=== PATIENT | female | born 1975 | race African-American/Black ===

== ENCOUNTER 2019-02-09 06:06 | Emergency (ER) | payer OTHER ==
[~2019-02-09] VITALS: Ht 160 cm; Wt 73.9 kg
[2019-02-09] MEDS ORDERED: IV NORMAL SALINE 1000ML BAG 1,000 ML IV SCH (06:42)
--- NOTE | 2019-02-09 06:51 | PHYS DOC ---
Past Medical History Past Medical History: Asthma, Hypertension, Migraines Past Surgical History: Hysterectomy Smoking: Cigarettes (The patient is a nonsmoker.) Alcohol Use: None Drug Use: None Adult General Chief Complaint Chief Complaint: FATIGUE HPI HPI Patient is a 43-year-old female who presents to the emergency department for evaluation. She states that she began feeling lightheaded yesterday, ate tonight, developed a migraine headache on her left side. She states the headache was more intense earlier, but has let up some at this time. This headache is exactly the same as her prior migraine headaches that she has had in the past, was associated with some blurred vision transiently as her migraine headaches normally are, but that has resolved at this time. She states she just feels f atigued, which is her chief complaint. She states she has felt lightheaded for the past 24 hours. She denies any numbness, weakness, current vision changes, speech difficulty, she has had some shortness of breath earlier, which seems to have improved. She does report a history of asthma. She states she has some intermittent chest pain yesterday but has not had any chest discomfort at this time. She describes her chest pain was brief and sharp, lasting a few seconds and then disappearing. She does not have any pleuritic pain this time. She denies any exertional pain. There are no alleviating or exacerbating factors to her symptoms otherwise. Her main concern is the lightheadedness that she is experiencing. She does not report significant current shortness of breath. She is not having any chest pain currently. Review of Systems Review of Systems Constitutional: Denies fever or chills [] Eyes: Denies change in visual acuity, redness, or eye pain [] HENT: Denies nasal congestion or sore throat [] Respiratory: Denies cough or current shortness of breath [] Cardiovascular: No additional information not addressed in HPI [] GI: Denies abdominal pain, nausea, vomiting, bloody stools or diarrhea [] : Denies dysuria or hematuria [] Musculoskeletal: Denies back pain or joint pain [] Integument: Denies rash or skin lesions [] Neurologic: Denies focal weakness or sensory changes [] Endocrine: Denies polyuria or polydipsia [] All other systems were reviewed and found to be within normal limits, except as documented in this note. Current Medications Current Medications Current Medications Medications (Trade) Dose Ordered Sig/Juliane Start Time Stop Time Status Last Admin Dose Admin Acetaminophen (Tylenol) 1,000 mg 1X ONCE 02/09/19 07:30 02/09/19 07:31 DC Sodium Chloride 1,000 ml @ 1,000 mls/hr Q1H 02/09/19 06:42 02/09/19 07:41 DC 02/09/19 07:46 1,000 MLS/HR Allergies Allergies Allergies Coded Allergies Type Severity Reaction Last Updated Verified No Known Drug Allergies 02/09/19 No Physical Exam Physical Exam PHYSICAL EXAM: CONSTITUTIONAL: Well developed, well nourished HEAD: normocephalic, atraumatic EENT: PERRL, EOMI. Conjunctivae normal color, sclerae non-icteric; moist mucous membranes. NECK: Supple, non-tender; no meningismus. LUNGS: Lungs CTA, breathing even and unlabored. Normal air movement. HEART: Regular rate and rhythm, no murmur CHEST: No deformity; non-tender ABDOMEN: The abdomen is soft, and non-tender, no masses or bruits. EXTREM: Normal ROM; no deformity, no calf tenderness. Normal pulses palpable in all extremities. There is no pedal edema. SKIN: No rash; no diaphoresis NEURO: Alert; normal speech and cognition; CN's grossly intact; strength grossly intact without focal deficit. BACK: No CVA TTP. Current Patient Data Vital Signs Vital Signs Date Time Temp Pulse Resp B/P (MAP) Pulse Ox O2 Delivery O2 Flow Rate FiO2 02/09/19 06:30 97.9 106 20 129/70 (89) 98 Room Air 97.9 Lab Values Laboratory Tests Test 02/09/19 06:25 02/09/19 06:36 02/09/19 06:50 Urine Color Yellow Urine Clarity Clear Urine pH 6.5 Urine Specific [place] 1.020 Urine Protein 30 mg/dL (NEG-TRACE) Urine Glucose (UA) Negative mg/dL (NEG) Urine Ketones (Stick) Negative mg/dL (NEG) Urine Blood Negative (NEG) Urine Nitrite Negative (NEG) Urine Bilirubin Negative (NEG) Urine Urobilinogen Dipstick 1.0 mg/dL (0.2 mg/dL) Urine Leukocyte Esterase Negative (NEG) Urine RBC 0 /HPF (0-2) Urine WBC Occ /HPF (0-4) Urine Squamous Epithelial Cells Mod /LPF Urine Bacteria Few /HPF (0-FEW) Urine Hyaline Casts Moderate /HPF Urine Mucus Marked /LPF POC Urine HCG, Qualitative Hcg negative (Negative) White Blood Count 10.1 x10^3/uL (4.0-11.0) Red Blood Count 5.06 x10^6/uL (3.50-5.40) Hemoglobin 15.3 g/dL (12.0-15.5) Hematocrit 45.0 % (36.0-47.0) Mean Corpuscular Volume 89 fL (79-100) Mean Corpuscular Hemoglobin 30 pg (25-35) Mean Corpuscular Hemoglobin Concent 34 g/dL (31-37) Red Cell Distribution Width 13.4 % (11.5-14.5) Platelet Count 304 x10^3/uL (140-400) Neutrophils (%) (Auto) 78 % (31-73) H Lymphocytes (%) (Auto) 15 % (24-48) L Monocytes (%) (Auto) 6 % (0-9) Eosinophils (%) (Auto) 1 % (0-3) Basophils (%) (Auto) 0 % (0-3) Neutrophils # (Auto) 7.8 x10^3uL (1.8-7.7) H Lymphocytes # (Auto) 1.5 x10^3/uL (1.0-4.8) Monocytes # (Auto) 0.6 x10^3/uL (0.0-1.1) Eosinophils # (Auto) 0.1 x10^3/uL (0.0-0.7) Basophils # (Auto) 0.0 x10^3/uL (0.0-0.2) D-Dimer (Yoko) 0.32 ug/mlFEU (0.00-0.50) Sodium Level 138 mmol/L (136-145) Potassium Level 3.5 mmol/L (3.5-5.1) Chloride Level 103 mmol/L (98-107) Carbon Dioxide Level 25 mmol/L (21-32) Anion Gap 10 (6-14) Blood Urea Nitrogen 9 mg/dL (7-20) Creatinine 1.0 mg/dL (0.6-1.0) Estimated GFR (Cockcroft-Gault) 73.2 BUN/Creatinine Ratio 9 (6-20) Glucose Level 97 mg/dL (70-99) Calcium Level 9.5 mg/dL (8.5-10.1) Magnesium Level 2.0 mg/dL (1.8-2.4) Total Bilirubin 0.7 mg/dL (0.2-1.0) Aspartate Amino Transferase (AST) 20 U/L (15-37) Alanine Aminotransferase (ALT) 24 U/L (14-59) Alkaline Phosphatase 65 U/L (46-116) ZS-Yns-L-Type Natriuretic Peptide 109 pg/mL (0-124) Total Protein 7.6 g/dL (6.4-8.2) Albumin 3.9 g/dL (3.4-5.0) Albumin/Globulin Ratio 1.1 (1.0-1.7) Thyroid Stimulating Hormone (TSH) 1.010 uIU/mL (0.358-3.74) Free Thyroxine 0.91 ng/dL (0.76-1.46) Laboratory Tests 02/09/19 06:50 Laboratory Tests 02/09/19 06:50 EKG EKG [Normal sinus rhythm with a normal rate, normal axis, normal intervals, there are no acute ischemic ST/T changes.] Radiology/Procedures Radiology/Procedures [] Course & Med Decision Making Course & Med Decision Making Pertinent Labs and Imaging studies reviewed. (See chart for details) []9:10 AM:Patient remains stable. I discussed test results, the need for close follow-up, and return precautions. Dragon Disclaimer Dragon Disclaimer This electronic medical record was generated, in whole or in part, using a voice recognition dictation system. Departure Departure Impression: Primary Impression: Migraine headache Additional Impression: Lightheadedness Disposition: 01 HOME, SELF-CARE Condition: STABLE Referrals: BJ BERNAL MD (PCP) Patient Instructions: Dizziness, Migraine Headache Problem Qualifiers ALBERTA CORDERO MD February 09, 2019 06:51
[2019-02-09 06:57] LABS: BILIRUBIN,URINE NEGATIVE (NEG); CLARITY,URINE CLEAR; COLOR,URINE YELLOW; NITRITE,URINE NEGATIVE (NEG); PH,URINE 6.5; PROTEIN,URINE 30 mg/dL (NEG-TRACE)
[2019-02-09 07:01] LABS: BASO % 0 % (0-3); EOS # 0.1 x10^3/uL (0.0-0.7); EOS % 1 % (0-3); HEMOGLOBIN 15.3 g/dL (12.0-15.5); LYMPH # 1.5 x10^3/uL (1.0-4.8); LYMPH % 15 % (24-48); MEAN CORPUSCULAR HEMOGLOBIN 30 pg (25-35); MEAN CORPUSCULAR HGB CONC 34 g/dL (31-37); MEAN CORPUSCULAR VOLUME 89 fL (79-100); MONO # 0.6 x10^3/uL (0.0-1.1); MONO % 6 % (0-9); NEUT # 7.8 x10^3uL (1.8-7.7); NEUT % 78 % (31-73); PLATELET COUNT 304 x10^3/uL (140-400); RED BLOOD COUNT 5.06 x10^6/uL (3.50-5.40); RED CELL DISTRIBUTION WIDTH 13.4 % (11.5-14.5); WHITE BLOOD COUNT 10.1 x10^3/uL (4.0-11.0)
[2019-02-09 07:10] LABS: CALCIUM 9.5 mg/dL (8.5-10.1); GFR 73.2; POTASSIUM 3.5 mmol/L (3.5-5.1)
[2019-02-09 07:16] LABS: ALBUMIN 3.9 g/dL (3.4-5.0); ALBUMIN/GLOBULIN RATIO 1.1 (1.0-1.7); TOTAL BILIRUBIN 0.7 mg/dL (0.2-1.0); TOTAL PROTEIN 7.6 g/dL (6.4-8.2)
[2019-02-09 07:23] LABS: BACTERIA,URINE FEW /HPF (0-FEW); RBC,URINE 0 /HPF (0-2); SQUAMOUS EPITHELIAL CELL,UR MOD /LPF; WBC,URINE OCC /HPF (0-4)
[2019-02-09 07:24] LABS: HYALINE CASTS, URINE MODERATE /HPF
[2019-02-09 07:27] LABS: FREE T4 0.91 ng/dL (0.76-1.46); THYROID STIM HORMONE (TSH) 1.01 uIU/mL (0.358-3.74)
[2019-02-09] MEDS ORDERED: ACETAMINOPHEN 500 MG TABLET PO ONE (07:30)
--- NOTE | 2019-02-09 07:39 | RAD ---
Chest, 2 views, 02/09/2019: HISTORY: Shortness of breath The heart size and pulmonary vascularity are normal. No pulmonary infiltrate is seen. There is no evidence of pleural fluid. IMPRESSION: No acute cardiopulmonary abnormality is detected. Electronically signed by: Harpreet Granda MD (02/09/2019 7:36 AM) [facility]
[2019-02-09 08:59] VITALS: BP 111/64
[2019-02-09] MEDS ORDERED: KETOROLAC 30 MG/ML VIAL. IV ONE (09:15)
--- NOTE | 2019-02-09 11:06 | EKG ---
[facility] [address] [place] [address] Test Date: 2019-02-09 Test Time: 07:58:08 Pat Name: NGA LUO Department: Room: Gender: F [employer] Tech: : 1975 Requested By: ALBERTA CORDERO Order Number: [id number] Reading MD: Ramses Singh Measurements Intervals [place] Rate: 80 P: 44 NE: 176 QRS: 21 QRSD: 74 T: 23 QT: 368 QTc: 428 Interpretive Statements SINUS RHYTHM NO SPECIFIC ECG ABNORMALITIES RI6.01 No previous ECG available for comparison Electronically Signed On 02-11-2019 9:52:13 CDT by Ramses Singh
== END 2019-02-09 09:35 | disposition home or self-care (01) ==
LOC: ER 06:06
DX: G43.909 Migraine, unspecified, not intractable, without status migrainosus (principal); R42 Dizziness and giddiness; R53.83 Other fatigue; J45.909 Unspecified asthma, uncomplicated; I10 Essential (primary) hypertension; Z90.710 Acquired absence of both cervix and uterus
CPT/HCPCS: 36415; 71046; 80053; 81001; 81025; 83735; 83880; 84439; 84443; 85025; 85379; 93005; 96361; 96374; 99285; J1885; J7030

== ENCOUNTER 2019-11-08 20:25 | Emergency (ER) | payer SELFPAY ==
[~2019-11-08] VITALS: Ht 160 cm; Wt 73.6 kg
[2019-11-08 21:14] VITALS: BP 153/95
[2019-11-08] MEDS ORDERED: diphenhydrAMINE 50 MG/ML VIAL IM ONE (21:45)
[2019-11-08] MEDS ORDERED: ONDANSETRON ODT 4 MG TAB.RAPDIS. PO ONE (21:45)
[2019-11-08] MEDS ORDERED: KETOROLAC 60 MG/2 ML VIAL. IM ONE (21:45)
[2019-11-08] MEDS ORDERED: BUTA1TAB23 PO (22:29)
--- NOTE | 2019-11-08 22:30 | PHYS DOC ---
Past Medical History Past Medical History: Asthma, Hypertension, Migraines (LENORE GRIJALVA APRN) Past Surgical History: Hysterectomy (LENORE GRIJALVA APRN) Alcohol Use: None Drug Use: None (LENORE GRIJALVA APRN) Attending Signature I have participated in the care of this patient and I have reviewed and agree with all pertinent clinical information above including history, exam, and recommendations. (SHUKRI MORALES MD) Adult General Chief Complaint Chief Complaint: HEADACHE HPI HPI Patient is a 44 year old AA Female, accompanied by friend, who presents to the emergency department with complaints of a migraine since 1400 this afternoon. Patient states she has tried taking Excedrin medication for the headache with no relief of her symptoms. She states she has nausea and photosensitivity with the onset of the pain. Patient denies any vomiting, dizziness, numbness, tingling, weakness, neck pain, fever, dizziness, or weakness. She currently rates pain 8 out of 10 on pain scale and states that this is similar to her previous migraines. All other ROS is neg unless otherwise noted in HPI. (LENORE GRIJALVA APRN) Review of Systems Review of Systems See Above (LENORE GRIJALVA APRN) Current Medications Current Medications Current Medications Medications (Trade) Dose Ordered Sig/Juliane Start Time Stop Time Status Last Admin Dose Admin Diphenhydramine HCl (Benadryl) 25 mg 1X ONCE 11/08/19 21:45 11/08/19 21:46 DC 11/08/19 21:58 25 MG Ketorolac Tromethamine (Toradol Im) 30 mg 1X ONCE 11/08/19 21:45 11/08/19 21:46 DC 11/08/19 21:58 30 MG Ondansetron HCl (Zofran Odt) 4 mg 1X ONCE 11/08/19 21:45 11/08/19 21:46 DC 11/08/19 21:57 4 MG (SHUKRI MORALES MD) Allergies Allergies Allergies Coded Allergies Type Severity Reaction Last Updated Verified No Known Drug Allergies 02/09/19 No (SHUKRI MORALES MD) Physical Exam Physical Exam See Above Constitutional: Well developed, well nourished, no acute distress, non-toxic appearance. [] HENT: Normocephalic, atraumatic, bilateral external ears normal, oropharynx moist, no oral exudates, nose normal. [] Eyes: PERRLA, EOMI, conjunctiva normal, no discharge. [] Neck: Normal range of motion, no stridor. [] Cardiovascular:Heart rate regular rhythm Lungs & Thorax: Respirations even and unlabored, no retractions, no respiratory distress Skin: Warm, dry, no erythema, no rash. [] Extremities: No cyanosis, ROM intact, no edema. [] Neurologic: Alert and oriented X 3, no focal deficits noted. [] Psychologic: Affect normal, judgement normal, mood normal. [] (LENORE GRIJALVA APRN) Current Patient Data Vital Signs Vital Signs Date Time Temp Pulse Resp B/P (MAP) Pulse Ox O2 Delivery O2 Flow Rate FiO2 11/08/19 21:14 98.4 98 18 153/95 (114) 100 Room Air 98.4 (SHUKRI MORALES MD) EKG EKG [] (LENORE GRIJALVA APRN) Radiology/Procedures Radiology/Procedures [] (LENORE GRIJALVA APRN) Course & Med Decision Making Course & Med Decision Making Pertinent Labs and Imaging studies reviewed. (See chart for details) [] (LENORE GRIJALVA APRN) Dragon Disclaimer Dragon Disclaimer This electronic medical record was generated, in whole or in part, using a voice recognition dictation system. (LENORE GRIJALVA APRN) Departure Departure Impression: Primary Impression: Migraine headache Referrals: BJ BERNAL MD (PCP) Patient Instructions: Recurrent Migraine Headache, [id number] Additional Instructions: Fill the prescription and use as directed for pain. Home to rest in a cool dark room. Limit exposure to screens. Follow up with your primary care doctor in 1-2 days. Return to the ER if symptoms worsen. Scripts Butalb/Acetaminophen/Caffeine ([id number] [id number]) 1 Each Tablet 1-2 EACH PO Q4HRS PRN for PAIN MDD 6 tabs for 3 Days, #18 TAB 0 Refills Prov: LENORE GRIJALVA APRN 11/08/19 Problem Qualifiers Primary Impression: Migraine headache Migraine type: without aura Status migrainosus presence: without status migrainosus Intractability: not intractable Qualified Codes: G43.009 - Migraine without aura, not intractable, without status migrainosus LENORE GRIJALVA APRN Nov 08, 2019 22:29 SHUKRI MORALES MD Nov 09, 2019 03:58
== END 2019-11-08 22:58 | disposition home or self-care (01) ==
LOC: ER 20:25
DX: G43.009 Migraine without aura, not intractable, without status migrainosus (principal); L56.8 Other specified acute skin changes due to ultraviolet radiation; R11.0 Nausea; J45.909 Unspecified asthma, uncomplicated; I10 Essential (primary) hypertension; Z90.710 Acquired absence of both cervix and uterus
CPT/HCPCS: 96372; 99284; J1200; J1885; Q0162